=== PATIENT | male | born 1975 | race American Indian/Alaskan Native ===

== ENCOUNTER 2018-01-28 13:04 | Emergency (ER) | payer SELFPAY ==
[2018-01-28 13:11] VITALS: BP 122/81
[2018-01-28 13:36] LABS: Amphetamine Screen,Urine PRESUMPTIVE NEGATIVE; Benzodiazepines Screen,Urine PRESUMPTIVE NEGATIVE; Methadone Screen,Urine PRESUMPTIVE NEGATIVE; Opiate Screen,Urine PRESUMPTIVE NEGATIVE
[2018-01-28 13:46] LABS: Bilirubin,Urine NEG (Negative); Blood,Urine MOD (Negative); Color,Urine Yellow (Yellow); Mucus,Urine FEW /HPF; Protein,Urine <15 mg/dL mg/dL (Negative)
[2018-01-28 13:49] LABS: Basophils # (Auto) 0.1 K/mm3 (0.0-0.1); Basophils % (Auto) 1.1 % (0.0-1.8); Eosinophils # (Auto) 0.6 K/mm3 (0.0-0.4); Eosinophils % (Auto) 9.3 % (0.0-4.3); Hematocrit 40.7 % (35.5-45.6); Hemoglobin 13.7 gm/dl (11.8-15.2); Lymphocytes # (Auto) 2.3 K/mm3 (1.2-5.4); Lymphocytes % (Auto) 38.1 % (13.4-35.0); Mean Corpuscular HGB Conc 34 % (32-34); Mean Corpuscular Hemoglobin 33 pg (28-32); Mean Corpuscular Volume 97 fl (84-94); Monocytes # (Auto) 0.6 K/mm3 (0.0-0.8); Monocytes % (Auto) 9.3 % (0.0-7.3); Platelet Count 364 K/mm3 (140-440); Red Blood Count 4.21 M/mm3 (3.65-5.03); Red Cell Distribution Width 14.6 % (13.2-15.2)
[2018-01-28 13:57] LABS: BUN/Creatinine Ratio 17; Blood Urea Nitrogen 10 mg/dL (9-20); Calcium 9.2 mg/dL (8.4-10.2); Hemolysis Index 5
[2018-01-28 14:27] LABS: Cannabinoid Screen,Urine PRESUMPTIVE POSITIVE; Cocaine Screen,Urine PRESUMPTIVE POSITIVE
== END 2018-01-28 13:20 | disposition left against medical advice (07) ==
LOC: ED 13:04
DX: F10.231 Alcohol dependence with withdrawal delirium (principal); Z53.21 Procedure and treatment not carried out due to patient leaving prior to being seen by health care provider
CPT/HCPCS: 36415; 80048; 80307; 81001; 85025; G0480; 80320

== ENCOUNTER 2020-07-14 17:49 | Emergency (ER) | payer SELFPAY ==
[2020-07-14 18:22] VITALS: BP 103/60
== END 2020-07-14 20:30 | disposition left against medical advice (07) ==
LOC: ED 17:49
DX: R21 Rash and other nonspecific skin eruption (principal); Z53.21 Procedure and treatment not carried out due to patient leaving prior to being seen by health care provider

== ENCOUNTER 2021-11-29 16:54 | Emergency (ER) | payer SELFPAY ==
--- NOTE | 2021-12-01 12:57 | Electrocardiograph Report ---
[facility] Test Date: 2021-11-29 Test Time: 17:01:07 Pat Name: CHANDLER JORDAN Department: Room: Gender: M [employer]ig [employer]inder: SONNY : 1975 Requested By: MAURO ADDISON Order Number: [id number] Reading MD: Vu Martin Measurements Intervals [place] Rate: 84 P: 59 RI: 127 QRS: 15 QRSD: 75 T: -19 QT: 356 QTc: 420 Interpretive Statements Sinus rhythm Nonspecific ST-T segment elevation consider early repolarization versus acute lateral injury Nonspecific lateral T wave abnormality No previous ECG available for comparison Electronically Signed On 12-01-2021 12:57:35 EST by Vu Martin
== END 2021-11-29 16:55 | disposition left against medical advice (07) ==
LOC: ED 16:54
DX: R07.9 Chest pain, unspecified (principal); Z53.21 Procedure and treatment not carried out due to patient leaving prior to being seen by health care provider
CPT/HCPCS: 93005